=== PATIENT | male | born 1975 | race Caucasian/White ===

== ENCOUNTER 2017-07-04 19:04 | Inpatient (IN) | payer MEDICAID, SELFPAY ==
--- NOTE | 2017-07-04 19:28 | C.PDOC ---
History Of Present Illness The patient presents to the ED for psychiatric evaluation. Patient admits to suicidal ideation for the past 12 hours after being kicked out of his house by his . Patient admits to drinking alcohol earlier today and denies suicidal plan and homicidal ideation at this time. Time Seen by Provider: 07/04/17 19:28 Chief Complaint (Nursing): Psychiatric Evaluation History Per: Patient History/Exam Limitations: no limitations Onset/Duration Of Symptoms: Hrs (12) Current Symptoms Are (Timing): Still Present Suicide/Self Injury Attempted (Context): None Modifying Factor(s): Alcohol Severity: None Pain Scale Rating Of: 0 Associated Symptoms: Suicidal Thoughts. denies: Suicidal Plan Involuntary Hold By: None Recent travel outside of the [place]: No Additional History Per: Patient Past Medical History Reviewed: Historical Data, Nursing Documentation, Vital Signs Vital Signs: Last Vital Signs Temp 98.0 F 07/05/17 00:26 Pulse 74 07/05/17 00:26 Resp 18 07/05/17 00:26 BP 115/79 07/05/17 00:26 Pulse Ox 98 07/05/17 00:26 - Medical History PMH: Anxiety, Benign Prostatic Hyperplasia, Depression, Gastrointestinal Ulcer, Pancreatitis Denies: Diabetes, Hepatitis, HIV, HTN, Seizures, Sexually Transmitted Disease Surgical History: No Surg Hx - [facility] Procedures ALCOHOL DETOXIFICATION (06/17/14) Family History: States: Unknown Family Hx - Social History Hx Tobacco Use: No Hx Alcohol Use: Yes Hx Substance Use: No - Immunization History Hx Tetanus Toxoid Vaccination: No Hx Influenza Vaccination: No Hx Pneumococcal Vaccination: No Review Of Systems Constitutional: Negative for: Fever, Chills Cardiovascular: Negative for: Chest Pain, Palpitations Respiratory: Negative for: Cough, Shortness of Breath Gastrointestinal: Negative for: Nausea, Vomiting Skin: Negative for: Rash, Lesions, Jaundice, Bruising Neurological: Negative for: Weakness, Headache Psych: Positive for: Suicidal ideation, Other (EtOH intoxication ) Physical Exam - Physical Exam Appears: Non-toxic, No Acute Distress Skin: Warm, Dry Head: Normacephalic Eye(s): bilateral: Normal Inspection Oral Mucosa: Moist, Other (alcohol on breath ) Neck: Supple Chest: Symmetrical, No Deformity, No Tenderness Cardiovascular: Rhythm Regular, No Murmur Respiratory: No Rales, No Rhonchi, No Wheezing Gastrointestinal/Abdominal: Soft, No Tenderness, No Distention Back: Normal Inspection Extremity: Normal ROM, Capillary Refill (less than 2 seconds ) Extremity: Bilateral: Atraumatic Neurological/Psych: Oriented x3 Gait: Steady ED Course And Treatment - Laboratory Results Result Diagrams: 07/04/17 19:48 07/04/17 19:48 O2 Sat by Pulse Oximetry: 99 (on RA) Pulse Ox Interpretation: Normal Progress Note: Bloodwork and urinalysis ordered and reviewed. Disposition Discussed With Dr.: Oliver Thompson Comment: accepted the pt on his service and took over the care at 12:37AM Doctor Will See Patient In The: Hospital Counseled Patient/Family Regarding: Studies Performed, Diagnosis - Disposition Disposition: HOSPITALIZED Disposition Time: 19:28 Condition: FAIR Forms: [facility] ([place]) - POA Present On Arrival: None - Clinical Impression Clinical Impression: Alcohol abuse, Depressive disorder - Scribe Statement The provider has reviewed the documentation as recorded by the Scribe (Rebecca Bautista) Provider Attestation: All medical record entries made by the Scribe were at my direction and personally dictated by me. I have reviewed the chart and agree that the record accurately reflects my personal performance of the history, physical exam, medical decision making, and the department course for this patient. I have also personally directed, reviewed, and agree with the discharge instructions and disposition. Decision To Admit - Pt Status Changed To: Hospital Disposition Of: Inpatient - Admit Certification Admit to Inpatient:: After my assessment, the patient will require hospitalization for at least two midnights. This is because of the severity of symptoms shown, intensity of services needed, and/or the medical risk in this patient being treated as an outpatient. - InPatient: Physician Admission Certification: I certify that this patient requires 2 or more midnights of care for the following reason:: After my assessment, the patient will require hospitalization for at least two midnights. This is because of the severity of symptoms shown, intensity of services needed, and/or the medical risk in this patient being treated as an outpatient. - . Bed Request Type: Psychiatry Admitting Physician: Oliver Thompson Patient Diagnosis: Alcohol abuse, Depressive disorder
[2017-07-04 19:31] LABS: URINE BILIRUBIN NEGATIVE (NEGATIVE); URINE BLOOD NEGATIVE (NEGATIVE); URINE CLARITY Clear (Clear); URINE COLOR Straw (YELLOW); URINE GLUCOSE (UA) NORMAL (Normal); URINE LEUKOCYTE ESTERASE NEG Leu/uL (Negative); URINE PROTEIN NEGATIVE (NEGATIVE); URINE UROBILINOGEN NORMAL mg/dL (0.2-1.0)
[2017-07-04 19:44] LABS: BARBITURATES, UR NEGATIVE (NEGATIVE); OPIATES, UR NEGATIVE (NEGATIVE); PHENCYCLIDINE, UR NEGATIVE (NEGATIVE)
[2017-07-04 19:55] LABS: BASO % 0.6 % (0.0-2.0); EOS # 0.2 K/uL (0.0-0.7); EOS % 3.5 % (0.0-4.0); LYMPH # 3.8 K/uL (1.0-4.3); LYMPH % 57.3 % (20.0-40.0); MEAN CORPUSCULAR HEMOGLOBIN 34.3 pg (27.0-31.0); MEAN CORPUSCULAR HGB CONC 34.8 g/dL (33.0-37.0); MEAN PLATELET VOLUME 7.7 fL (7.2-11.7); MONO # 0.2 K/uL (0.0-0.8); MONO % 3.7 % (0.0-10.0); NEUT # 2.3 K/uL (1.8-7.0); NEUT % 34.9 % (50.0-75.0); NRBC % 0.2 % (0.0-2.0); RBC 4.9 Mil/uL (4.40-5.90); RED CELL DISTRIBUTION WIDTH 12.3 % (11.5-14.5); WHITE BLOOD COUNT 6.6 K/uL (4.8-10.8)
[2017-07-04 19:56] LABS: HEMOGLOBIN 16.8 g/dL (12.0-18.0); MEAN CELL VOLUME 98.4 fL (80.0-94.0)
[2017-07-04 20:11] LABS: ALB/GLOB RATIO 1.3 (1.0-2.1); ALBUMIN 4.9 g/dL (3.5-5.0); ALT/SGPT 92 U/L (21-72); AST/SGOT 96 U/L (17-59); BLOOD UREA NITROGEN 8 mg/dL (9-20); CALCIUM 8.9 mg/dl (8.6-10.4); GFR AFRICAN-AMERICAN > 60; GFR NON-AFRICAN AMERICAN > 60
[2017-07-04 20:23] LABS: BENZODIAZEPINES, UR POSITIVE (NEGATIVE)
--- NOTE | 2017-07-05 01:32 | PCM.BM ---
<Sean Costa - Last Filed: 07/05/17 01:29> Treatment Plan Problems - Problems identified on initial assessmt Depression Date Initiated: 07/05/17 Time Initiated: 01:00 Assessment reference: NA Status: Active Suicidal Ideation Date Initiated: 07/05/17 Time Initiated: 01:00 Assessment reference: NA Status: Active Alcohol Abuse Date Initiated: 07/05/17 Time Initiated: 01:00 Assessment reference: NA Status: Active Treatment assets and liabiliti Patient Assests: cooperative, self-reliant, ADL independent, negotiates basic needs, cognitively intact Patient Liabilities: financial problems, poor support system, relationship conflicts, substance abuse, medical problems, legal issue - Milieu Protocol Maintain good personal hygiene: daily Encourage regular showers, daily Remind patient to perform daily oral care, daily Assist patient to perform ADL's Maintain personal safety: every shift Educate patient to report safety concerns to staff, every shift Monitor environment for contraband/sharps Medication safety: Monitor for expected outcome, potential side effects: every shift, Assess barriers to learning: every shift, Assess readiness for medication education: every shift <Catrina Lawrence - Last Filed: 07/06/17 11:23> Family Contact Family involvement: Famliy/SO not involved - Goals for Treatment Patient goals for treatment: "I want to go home." Discharge/Continuing Care - Education Needs Education Needs: Patient Medication, Patient Coping Skills, Patient Placement options, Patient Community resources - Discharge Discharge Criteria: Tolerates medication w/o severe side effects, Free of Suicidal thoughts, No longer exhibiting s/s of withdrawal, Reduction of target symptoms Discharge to:: Home - Treatment Team Participation Discussed with Family/SO: No Was Patient/Family/SO present at Treatment Team Meeting: Yes
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
[2017-07-05] MEDS: Multiple Vitamins Tab PO SCH (17:28)
[2017-07-06 06:13] VITALS: TEMP 97.6
[2017-07-06] MEDS: Multiple Vitamins Tab PO SCH (09:55)
--- NOTE | 2017-07-06 12:25 | PCM.PYCHPN ---
Psychiatric Progress Note - Psychiatric Progress Note Patient seen today, length of contact: 15 min Patient Chief Complaint: "I feel good today" Problems Identified/Issues Discussed: Patient was seen and evaluated. Case discussed with staff. Patient states that he feels well overall today and slept well last night. Denies any current SI/HI, hallucinations or delusions. Denies any n/v/d, abdominal pain, diaphoresis, fever, chills. Patient is compliant with his medications, no side-effects noted. patient signed 48 hour notice for discharge yesterday ending tomorrow. Aftercare discussed. Patient would like [facility]. Medical Problems: none reported Diagnostic Results: reviewed DSM 5 Symptoms Update: improving with treatment Medication Change: No Medical Record Reviewed: Yes Mental Status Examination - Cognitive Function Orientation: Person, Place, Situation, Time Memory: Intact Attention: WNL Concentration: WNL Association: WN Fund of Knowledge: [facility] Decription of patient's judgement and insights: Fair - Mood Mood: Neutral - Affect Affect: Other (Appropiate) Additional comments: Appropriate - Speech Speech: Appropriate - Formal Thought Process Formal Thought Process: No Impairment Psychotic Thoughts and Behaviors: None - Suicidal Ideation Suicidal Ideation: No - Homicidal Ideation Homicidal Ideation: No Goal/Treatment Plan - Goal/Treatment Plan Need for Continued Stay: Remain at risks for inpatient hospitalization, Discharge may exacerbated symptoms, Severe functional impairment Progress Toward Problem(s) and Goals/Treatment Plan: Patient education Supportive therapy Will start Librium detox protocol for alcohol withdrawal symptoms Other when necessary medications Lexapro for depression CBT for relapse prevention M I for abstinence. patient will go to [facility] for follow-up care after discharge from the hospital. Estimated Date of D/C: 07/07/17 (Pt signed a 48hr yesterday at 11am; would like to return home and f/u with IOP) - Smoking Cessation Smoking Cessation Initiated: No
[2017-07-06 18:12] VITALS: RESP 20
[2017-07-07 06:10] VITALS: BP 112/66; PULSE 51; O2SAT 98
[2017-07-07] MEDS: Multiple Vitamins Tab PO SCH (09:40)
--- NOTE | 2017-07-07 09:52 | PCM.PYCHDC ---
Mental Status Examination - Mental Status Examination Orientation: Person Discharge Summary - Discharge Note Consultations:: List each consultation separately and include: 1. Reason for request. 2. Findings. 3. Follow-up Summary of Hospital Course include:: 1. Description of specific treatment plan utilized for patients during their course of treatmen. 2. Summarize the time- course for resolution of acute symptoms and/or regressed behaviors. 3. Describe issues identified and worked on during hospitalization. 4. Describe medication utilized. 5. Describe medical problems identified and treated. 6. Reassessment of suicide risk - Final Diagnosis (DSM 5) Condition upon Discharge: FAIR Disposition: HOME/ ROUTINE
[2017-07-07] MEDS ORDERED: Influenza Vaccine 60 mcg/0.5 mL SYR (4YR UP) IM ONE (10:00)
[2017-07-07] MEDS ORDERED: Pneumococcal 23-Valent Vaccine IM ONE (10:20)
== END 2017-07-07 11:15 | disposition home or self-care (01) | DRG 430 ==
LOC: C.ER 19:04 → C.9E 07-05 00:36 → C.5E 07-05 00:50
PROVIDERS: ADMIT Psychiatry & Neurology Psychiatry; ATTEND Psychiatry & Neurology Psychiatry
PROC: HZ2ZZZZ Detoxification Services for Substance Abuse Treatment (ICD-10-PCS; principal; 2017-07-05)
DX: F33.2 Major depressive disorder, recurrent severe without psychotic features (principal); R45.851 Suicidal ideations; F10.230 Alcohol dependence with withdrawal, uncomplicated; N40.0 Benign prostatic hyperplasia without lower urinary tract symptoms; F10.220 Alcohol dependence with intoxication, uncomplicated; Y90.8 Blood alcohol level of 240 mg/100 ml or more; F19.10 Other psychoactive substance abuse, uncomplicated

== ENCOUNTER 2018-06-29 23:34 | Emergency (ER) | payer MEDICAID ==
[2018-06-29 23:34] VITALS: BMI 26.6
--- NOTE | 2018-06-30 00:25 | C.PDOC ---
History Of Present Illness 43 year old male is brought to the ED by EMS for alcohol intoxication. Patient also c/o feeling depressed states he wants to talk to crisis. Patient admits to drinking alcohol today. Patient denies SI/HI, hallucinations, injury, fall, trauma. Time Seen by Provider: 06/30/18 00:25 Chief Complaint (Nursing): Psychiatric Evaluation History Per: Patient, EMS History/Exam Limitations: intoxication Onset/Duration Of Symptoms: Days Current Symptoms Are (Timing): Still Present Suicide/Self Injury Attempted (Context): None Modifying Factor(s): Alcohol Associated Symptoms: Depression. denies: Suicidal Thoughts, Suicidal Plan Recent travel outside of the [place]: No Additional History Per: Patient, EMS Past Medical History Reviewed: Historical Data, Nursing Documentation, Vital Signs Vital Signs: Last Vital Signs Temp 98.1 F 06/29/18 23:40 Pulse 89 06/29/18 23:40 Resp 16 06/29/18 23:40 BP 134/85 06/29/18 23:40 Pulse Ox 97 06/29/18 23:40 - Medical History PMH: Anxiety, Benign Prostatic Hyperplasia, Depression, Gastrointestinal Ulcer, Pancreatitis Denies: Diabetes, Hepatitis, HIV, HTN, Chronic Kidney Disease, Seizures, Sexually Transmitted Disease Surgical History: No Surg Hx - [facility] Procedures ALCOHOL DETOXIFICATION (06/17/14) DETOXIFICATION SERVICES FOR SUBSTANCE ABUSE TREATMENT (07/05/17) Family History: States: Unknown Family Hx - Social History Hx Tobacco Use: No Hx Alcohol Use: Yes Hx Substance Use: No - Immunization History Hx Tetanus Toxoid Vaccination: No Hx Influenza Vaccination: No Hx Pneumococcal Vaccination: No Review Of Systems Constitutional: Negative for: Fever, Chills Cardiovascular: Negative for: Chest Pain Respiratory: Negative for: Shortness of Breath Gastrointestinal: Negative for: Nausea, Vomiting, Abdominal Pain Skin: Negative for: Rash Psych: Positive for: Depression. Negative for: Suicidal ideation Physical Exam - Physical Exam Appears: Non-toxic, No Acute Distress Skin: Warm, Dry Head: Normacephalic Eye(s): bilateral: Normal Inspection Neck: Supple Chest: Symmetrical Cardiovascular: Rhythm Regular Respiratory: No Rales, No Rhonchi, No Wheezing Gastrointestinal/Abdominal: Soft, No Tenderness, No Guarding, No Rebound Extremity: Bilateral: Atraumatic, Normal Color And Temperature, Normal ROM Neurological/Psych: Oriented x3, Normal Speech, Normal Cognition Gait: Steady ED Course And Treatment - Laboratory Results Result Diagrams: 06/30/18 00:09 06/30/18 00:09 O2 Sat by Pulse Oximetry: 97 (ON RA) Pulse Ox Interpretation: Normal Disposition Counseled Patient/Family Regarding: Studies Performed, Diagnosis - Disposition Disposition Time: 00:25 Condition: FAIR Forms: [facility] ([place]) - Clinical Impression Clinical Impression: Alcohol intoxication - Scribe Statement The provider has reviewed the documentation as recorded by the Scribe Jose G Candelaria All medical record entries made by the Scribe were at my direction and personal ly dictated by me. I have reviewed the chart and agree that the record accurately reflects my personal performance of the history, physical exam, medical decision making, and the department course for this patient. I have also personally directed, reviewed, and agree with the discharge instructions and disposition. Physician Patient Turnover Patient Signed Over To: Juli Lainez Handoff Comments: pending sobriety and crisis eval
[2018-06-30 00:26] LABS: BASO # 0.1 K/uL (0.0-0.2); BASO % 0.8 % (0.0-2.0); EOS # 0.1 K/uL (0.0-0.7); EOS % 1.1 % (0.0-4.0); HEMOGLOBIN 16.1 g/dL (12.0-18.0); LYMPH # 3.3 K/uL (1.0-4.3); LYMPH % 53.8 % (20.0-40.0); MEAN CELL VOLUME 93.5 fL (80.0-94.0); MEAN CORPUSCULAR HEMOGLOBIN 31.9 pg (27.0-31.0); MEAN CORPUSCULAR HGB CONC 34.1 g/dL (33.0-37.0); MEAN PLATELET VOLUME 6.8 fL (7.2-11.7); MONO # 0.4 K/uL (0.0-0.8); MONO % 6.6 % (0.0-10.0); NEUT # 2.3 K/uL (1.8-7.0); NEUT % 37.7 % (50.0-75.0); NRBC % 0.1 % (0.0-2.0); RBC 5.06 Mil/uL (4.40-5.90); RED CELL DISTRIBUTION WIDTH 12.5 % (11.5-14.5); WHITE BLOOD COUNT 6.2 K/uL (4.8-10.8)
[2018-06-30 00:31] LABS: ALB/GLOB RATIO 1.5 (1.0-2.1); ALT/SGPT 40 U/L (21-72); AST/SGOT 62 U/L (17-59); BLOOD UREA NITROGEN 12 mg/dL (9-20); CALCIUM 8.5 mg/dl (8.6-10.4); GFR NON-AFRICAN AMERICAN > 60
[2018-06-30 00:40] LABS: GRANULAR CAST 7 /lpf (0-1); SQUAMOUS EPITHIAL < 1 /hpf (0-5); URINE BILIRUBIN NEGATIVE (NEGATIVE); URINE BLOOD 1+ (NEGATIVE); URINE CLARITY Hazy (Clear); URINE COLOR Yellow (YELLOW); URINE GLUCOSE (UA) NORMAL (Normal); URINE HYALINE CAST 0-2 /lpf (0-2); URINE LEUKOCYTE ESTERASE NEG Leu/uL (Negative); URINE PROTEIN 2+ mg/dL (NEGATIVE); URINE UROBILINOGEN NORMAL mg/dL (0.2-1.0)
[2018-06-30 00:47] LABS: BARBITURATES, UR NEGATIVE (NEGATIVE); BENZODIAZEPINES, UR NEGATIVE (NEGATIVE); OPIATES, UR NEGATIVE (NEGATIVE); PHENCYCLIDINE, UR NEGATIVE (NEGATIVE)
[2018-06-30 13:07] VITALS: BP 144/90; PULSE 83; RESP 20; TEMP 97.6; O2SAT 98
== END 2018-06-30 13:19 | disposition home or self-care (01) ==
LOC: C.ER 23:34
DX: F10.129 Alcohol abuse with intoxication, unspecified (principal); Y90.8 Blood alcohol level of 240 mg/100 ml or more; F41.9 Anxiety disorder, unspecified; F32.9 Major depressive disorder, single episode, unspecified

== ENCOUNTER 2018-08-15 20:29 | Inpatient (IN) | payer MEDICAID ==
[2018-08-15 20:30] VITALS: BMI 26.6
[2018-08-15 21:24] LABS: BASO % 0.5 % (0.0-2.0); EOS # 0.1 K/uL (0.0-0.7); EOS % 1.2 % (0.0-4.0); HEMOGLOBIN 16.9 g/dL (12.0-18.0); LYMPH # 2.7 K/uL (1.0-4.3); LYMPH % 40.7 % (20.0-40.0); MEAN CELL VOLUME 95.6 fL (80.0-94.0); MEAN CORPUSCULAR HEMOGLOBIN 32.8 pg (27.0-31.0); MEAN CORPUSCULAR HGB CONC 34.3 g/dL (33.0-37.0); MEAN PLATELET VOLUME 7.1 fL (7.2-11.7); MONO # 0.4 K/uL (0.0-0.8); MONO % 6.2 % (0.0-10.0); NEUT # 3.4 K/uL (1.8-7.0); NEUT % 51.4 % (50.0-75.0); NRBC % 0.1 % (0.0-2.0); RBC 5.15 Mil/uL (4.40-5.90); RED CELL DISTRIBUTION WIDTH 14.8 % (11.5-14.5); WHITE BLOOD COUNT 6.6 K/uL (4.8-10.8)
[2018-08-15 21:37] LABS: ALB/GLOB RATIO 1.7 (1.0-2.1); ALBUMIN 5.1 g/dL (3.5-5.0); ALT/SGPT 84 U/L (21-72); AST/SGOT 109 U/L (17-59); BLOOD UREA NITROGEN 12 mg/dL (9-20); CALCIUM 9.3 mg/dl (8.6-10.4); GFR NON-AFRICAN AMERICAN > 60
[2018-08-15 21:43] LABS: URINE BILIRUBIN NEGATIVE (NEGATIVE); URINE BLOOD 1+ (NEGATIVE); URINE CLARITY Clear (Clear); URINE COLOR Straw (YELLOW); URINE GLUCOSE (UA) NORMAL (Normal); URINE LEUKOCYTE ESTERASE NEG Leu/uL (Negative); URINE PROTEIN NEGATIVE (NEGATIVE); URINE UROBILINOGEN NORMAL mg/dL (0.2-1.0)
--- NOTE | 2018-08-15 21:47 | C.PDOC ---
History Of Present Illness Patient is a 43yo M with PMH of depression, anxiety, alcohol, cocaine, and heroin use with multiple hospitalizations for detox and DTs here today seeking help for detox. He denies current SI/HI, however states that he wants to stop drinking at any cost necessary since he knows the alcohol is hurting is liver. Last drink was 3 hours [employer]. He starts having withdrawal symptoms about 5 hours after last drink. Denies chest pain, shortness of breath, abdominal pain, numbness, palpitations. He has a history of alcohol withdrawal seizures. Admits to a liter of vodka a day, starting at age 27. Started doing cocaine and heroin to enhance intoxication. <Nancy Holden - Last Filed: 08/15/18 20:59> History Per: Patient Onset/Duration Of Symptoms: Hrs Current Symptoms Are (Timing): Still Present Suicide/Self Injury Attempted (Context): None Modifying Factor(s): Alcohol <Nancy Holden - Last Filed: 08/15/18 20:59> <Deric Moya - Last Filed: 08/15/18 23:46> Chief Complaint (Nursing): Psychiatric Evaluation Past Medical History Reviewed: Historical Data, Nursing Documentation, Vital Signs Vital Signs: Last Vital Signs Temp 98.5 F 08/15/18 20:32 Pulse 100 H 08/15/18 20:32 Resp BP 147/101 H 08/15/18 20:32 Pulse Ox 95 08/15/18 20:32 - Medical History PMH: Anxiety, Benign Prostatic Hyperplasia, Depression, Gastrointestinal Ulcer, Pancreatitis Denies: Diabetes, Hepatitis, HIV, HTN, Chronic Kidney Disease, Seizures, Sexually Transmitted Disease - [facility] ALCOHOL DETOXIFICATION (06/17/14) DETOXIFICATION SERVICES FOR SUBSTANCE ABUSE TREATMENT (07/05/17) Family History: States: Unknown Family Hx - Social History Hx Tobacco Use: No Hx Alcohol Use: Yes Hx Substance Use: No - Immunization History Hx Tetanus Toxoid Vaccination: No Hx Influenza Vaccination: No Hx Pneumococcal Vaccination: No <Nancy Holden - Last Filed: 08/15/18 20:59> Vital Signs: Last Vital Signs Temp 98.0 F 08/15/18 21:58 Pulse 84 08/15/18 21:58 Resp BP 151/75 H 08/15/18 21:58 Pulse Ox 95 08/15/18 22:11 - [facility] ALCOHOL DETOXIFICATION (06/17/14) DETOXIFICATION SERVICES FOR SUBSTANCE ABUSE TREATMENT (07/05/17) <Deric Moya - Last Filed: 08/15/18 23:46> Review Of Systems Constitutional: Positive for: Weakness, Malaise. Negative for: Fever, Chills, Sweats Cardiovascular: Positive for: Chest Pain, Palpitations Respiratory: Negative for: Cough, Shortness of Breath, Wheezing Gastrointestinal: Positive for: Abdominal Pain. Negative for: Nausea, Vomiting, Diarrhea, Constipation, Melena Skin: Negative for: Rash Neurological: Negative for: Weakness, Numbness, Dizziness Psych: Positive for: Anxiety, Depression, Suicidal ideation, Withdrawal <Nancy Holden Y - Last Filed: 08/15/18 20:59> Physical Exam - Physical Exam Appears: No Acute Distress, Agitated Skin: Warm (erythematous), Dry Head: Atraumatic, Normacephalic Eye(s): bilateral: PERRL, EOMI Oral Mucosa: Dry Cardiovascular: Rhythm Regular (tachy), No Edema, No Murmur Respiratory: Normal Breath Sounds, Decreased Breath Sounds, No Accessory Muscle Use Gastrointestinal/Abdominal: Normal Exam, Bowel Sounds, Soft, No Tenderness, Organomegaly (palpable liver border), No Distention Extremity: Normal ROM, No Tenderness, No Pedal Edema, No Calf Tenderness, Capillary Refill (<2 sec) Extremity: Bilateral: Atraumatic Pulses: Left Radial: Normal, Right Radial: Normal, Left Dorsalis Pedis: Normal, Right Dorsalis Pedis: Normal DTR: Bicep (R): 2+, Bicep (L): 2+, Knee (R): 2+, Knee (L): 2+ Neurological/Psych: Oriented x3, Normal Speech, Other (agitated, pressured speech, flight of ideas) <Nancy Holden - Last Filed: 08/15/18 20:59> ED Course And Treatment O2 Sat by Pulse Oximetry: 95 <Nancy Holden - Last Filed: 08/15/18 20:59> - Laboratory Results Result Diagrams: 08/15/18 21:16 08/15/18 21:21 Lab Results: Total Bilirubin 0.6 mg/dL (0.2-1.3) 08/15/18 21:21 AST 109 U/L (17-59) H D 08/15/18 21:21 ALT 84 U/L (21-72) H D 08/15/18 21:21 Alkaline Phosphatase 91 U/L (38-126) 08/15/18 21:21 Total Protein 8.1 g/dL (6.3-8.3) 08/15/18 21:21 Albumin 5.1 g/dL (3.5-5.0) H 08/15/18 21:21 Globulin 3.0 gm/dL (2.2-3.9) 08/15/18 21:21 Albumin/Globulin Ratio 1.7 (1.0-2.1) 08/15/18 21:21 Urine Color Straw (YELLOW) 08/15/18 21:32 Urine Clarity Clear (Clear) 08/15/18 21:32 Urine pH 5.0 (5.0-8.0) 08/15/18 21:32 Ur Specific [place] 1.003 (1.003-1.030) 08/15/18 21:32 Urine Protein Negative mg/dL (NEGATIVE) 08/15/18 21:32 Urine Glucose (UA) Normal mg/dL (Normal) 08/15/18 21:32 Urine Ketones Negative mg/dL (NEGATIVE) 08/15/18 21:32 Urine Blood 1+ (NEGATIVE) H 08/15/18 21:32 Urine Nitrate Negative (NEGATIVE) 08/15/18 21:32 Urine Bilirubin Negative (NEGATIVE) 08/15/18 21:32 Urine Urobilinogen Normal mg/dL (0.2-1.0) 08/15/18 21:32 Ur Leukocyte Esterase Neg [place]/uL (Negative) 08/15/18 21:32 Urine WBC (Auto) 1 /hpf (0-5) 08/15/18 21:32 Urine RBC (Auto) 1 /hpf (0-3) 08/15/18 21:32 <Deric Moya E - Last Filed: 08/15/18 23:46> Medical Decision Making Medical Decision Making: - labs - Mg, P - UA - UDS, BAL - PO Librium 50mg medically clear for psych <Nancy Holden Y - Last Filed: 08/15/18 20:59> Medical Decision Making: approx 2300: pt becoming more agitated, confrontational admission to psych floor pending per Dr. Jay Liu 20, Ativan 2 mg IM for pt's safety 0000: re-eval, pt resting comfortably. Pending transfer to Psych floors 0100: stable Signed over to overnight MD pending transfer to Psych floors. <Deric Moya - Last Filed: 08/15/18 23:46> Disposition - Disposition Disposition Time: 22:09 <Nancy Holden - Last Filed: 08/15/18 20:59> Doctor Will See Patient In The: Hospital Counseled Patient/Family Regarding: Studies Performed, Diagnosis <Deric Moya - Last Filed: 08/15/18 23:46> - Disposition Disposition: HOSPITALIZED Condition: STABLE Forms: [facility] ([place]) - Clinical Impression Clinical Impression: Alcohol intoxication, Depressive disorder
[2018-08-15 22:02] LABS: BARBITURATES, UR NEGATIVE (NEGATIVE); BENZODIAZEPINES, UR NEGATIVE (NEGATIVE); OPIATES, UR NEGATIVE (NEGATIVE); PHENCYCLIDINE, UR NEGATIVE (NEGATIVE)
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
[2018-08-16] MEDS: Multiple Vitamins Tab PO SCH (10:15)
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
[2018-08-17] MEDS: Multiple Vitamins Tab PO SCH (09:29)
--- NOTE | 2018-08-17 23:53 | PCM.PYCHPN ---
Psychiatric Progress Note - Psychiatric Progress Note Patient seen today, length of contact: 17 Patient Chief Complaint: "I am feeling better today" Problems Identified/Issues Discussed: The pt is seen, chart reviewed, case is discussed with staff. The pt is compliant with medications and reports no side-effects. Symptoms are improving but needs more time to stabilize and to avoid relapse. Pt attends groups and activities. Support given, psycho-education provided. After care discussed. Medication Change: No Medical Record Reviewed: Yes Mental Status Examination - Cognitive Function Orientation: Person, Place, Situation, Time Memory: Intact Attention: WNL Concentration: WNL - Mood Mood: Neutral - Affect Affect: Constricted, Depressed - Speech Speech: Appropriate - Formal Thought Process Formal Thought Process: No Impairment - Suicidal Ideation Suicidal Ideation: No - Homicidal Ideation Homicidal Ideation: No Goal/Treatment Plan - Goal/Treatment Plan Need for Continued Stay: Remain at risks for inpatient hospitalization, Discharge may exacerbated symptoms, Severe functional impairment Progress Toward Problem(s) and Goals/Treatment Plan: Continue medications Support and psychoeducation daily Attend groups and activities daily Individual therapy After care planning by HERACLIO and the team
[2018-08-18 06:57] VITALS: O2SAT 99
[2018-08-18] MEDS: Multiple Vitamins Tab PO SCH (10:12)
[2018-08-19] MEDS: Multiple Vitamins Tab PO SCH (09:34)
[2018-08-19] MEDS ORDERED: Pneumococcal 23-Valent Vaccine IM ONE (10:00)
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
[2018-08-19 11:01] VITALS: BP 122/82; PULSE 92; RESP 18; TEMP 97.7
== END 2018-08-19 12:22 | disposition home or self-care (01) | DRG 750 ==
LOC: C.ER 20:29 → C.5E 23:45
PROVIDERS: ADMIT Psychiatry & Neurology Psychiatry; ATTEND Psychiatry & Neurology Psychiatry
PROC: HZ2ZZZZ Detoxification Services for Substance Abuse Treatment (ICD-10-PCS; principal; 2018-08-15)
PROC: GZHZZZZ Group Psychotherapy (ICD-10-PCS; 2018-08-15)
PROC: HZ52ZZZ Individual Psychotherapy for Substance Abuse Treatment, Cognitive-Behavioral (ICD-10-PCS; 2018-08-15)
PROC: HZ59ZZZ Individual Psychotherapy for Substance Abuse Treatment, Supportive (ICD-10-PCS; 2018-08-15)
PROC: HZ56ZZZ Individual Psychotherapy for Substance Abuse Treatment, Psychoeducation (ICD-10-PCS; 2018-08-15)
PROC: HZ46ZZZ Group Counseling for Substance Abuse Treatment, Psychoeducation (ICD-10-PCS; 2018-08-15)
PROC: GZ58ZZZ Individual Psychotherapy, Cognitive-Behavioral (ICD-10-PCS; 2018-08-15)
PROC: GZ56ZZZ Individual Psychotherapy, Supportive (ICD-10-PCS; 2018-08-15)
PROC: HZ42ZZZ Group Counseling for Substance Abuse Treatment, Cognitive-Behavioral (ICD-10-PCS; 2018-08-15)
DX: F10.230 Alcohol dependence with withdrawal, uncomplicated (principal); F33.3 Major depressive disorder, recurrent, severe with psychotic symptoms; F10.220 Alcohol dependence with intoxication, uncomplicated; Y90.8 Blood alcohol level of 240 mg/100 ml or more; N40.0 Benign prostatic hyperplasia without lower urinary tract symptoms; F41.9 Anxiety disorder, unspecified; G47.00 Insomnia, unspecified